=== PATIENT | female | born 1940 | race Caucasian/White ===

== ENCOUNTER 2017-05-06 07:41 | Inpatient (IN) | payer OTHER ==
[2017-05-02 16:03] LABS: BASOPHILS 0.2 %; BASOPHILS ABSOLUTE 0.02 10/3/uL (0.0-0.16); EOSINOPHILS 1.2 %; EOSINOPHILS ABSOLUTE 0.12 10/3/uL (0.0-0.53); HEMATOCRIT 43.6 % (36.0-48.0); HEMOGLOBIN 14.8 g/dL (12.0-16.0); IMMATURE GRANULOCYTES 0.3 %; IMMATURE GRANULOCYTES ABSOLUTE 0.03 10/3/uL (0.0-0.11); LYMPHOCYTES 20.7 %; LYMPHOCYTES ABSOLUTE 2.14 10/3/uL (0.67-4.30); MEAN CORPUS HGB CONC 33.9 g/dL (32.0-36.0); MEAN CORPUSCULAR HEMOGLOB 32.7 pg (26.0-34.0); MEAN CORPUSCULAR VOLUME 96.5 fL (80-100); MEAN PLATELET VOLUME 9.7 fL (9.2-13.0); MONOCYTES 5.2 %; MONOCYTES ABSOLUTE 0.54 10/3/uL (0.21-1.20); NEUTROPHILS 72.4 %; NEUTROPHILS ABSOLUTE 7.47 10/3/uL (2.02-8.40); PLATELET COUNT 285 10/3/uL (150-400); RBC DISTRIBUTION WIDTH 12.6 % (12.0-16.0); RED CELL COUNT 4.52 10/6/uL (4.0-5.6); WHITE BLOOD CELLS 10.3 10/3/uL (4.5-10.5)
[2017-05-02 16:04] LABS: MANUAL DIFF NO %
[2017-05-02 16:19] LABS: BUN (BLOOD UREA NITROGEN) 8 MG/DL (6-23); CALCIUM, SERUM 9.9 MG/DL (8.5-10.4); CHLORIDE, SERUM 101 MMOL/L (96-112); CO2 (CARBON DIOXIDE) 32 MMOL/L (24-34); GFR AFRICAN AMERICAN 104 ML/MIN (>=60); GFR NON AFRICAN AMERICAN 90 ML/MIN (>=60); GLUCOSE, SERUM 78 MG/DL (60-99); SODIUM, SERUM 136 MMOL/L (135-148)
[2017-05-02 16:20] LABS: ASCORBIC ACID (UR NOT ORDER) NEG (NEG); BILIRUBIN, URINE NEGATIVE (NEG); KETONE, URINE NEGATIVE (NEG); LEUKOCYTE ESTERASE(NOT OR NEG (NEG); WBC (NOT ORDERED) (RFLEX) 1 (0-5)
[~2017-05-06] VITALS: Ht 162.6 cm; Wt 54.4 kg
--- NOTE | ~2017-05-06 | OP ---
Record Of Operation [facility] [address] [place]. [address] NAME: LUIS LYNN : 44 STATUS : ADM IN PAT#: [id number] AGE: 76 ADM/REG DATE : 05/06/17 MR#: [id number] REPORT SERV DATE: 05/07/17 DICTATED BY: PARKER LAMBERT II DATE: 05/07/17 REPORT STATUS : Draft TRANSCRIBED BY: MODJanell DATE: 05/07/17 DATE OF PROCEDURE: 05/06/2017 CLOTHES WRINGER: Irineo. PREOPERATIVE DIAGNOSIS: Infrarenal abdominal aortic aneurysm greater than 5 cm. POSTOPERATIVE DIAGNOSIS: Infrarenal abdominal aortic aneurysm greater than 5 cm. PROCEDURES: 1. Ultrasound-guided percutaneous sheath insertion into bilateral common femoral arteries. 2. Abdominal aortogram. 3. Percutaneous endovascular repair of abdominal aortic aneurysm using a modular endograft with two docking limbs. ANESTHESIA: General. IV FLUIDS: 600. ESTIMATED BLOOD LOSS: 150. CONTRAST: 52. DETAILS OF THE PROCEDURE: The patient was taken to the operating room and placed in supine position on the table. Both groins were prepped and draped. The abdomen was prepped and draped. We then used ultrasound to identify both common femoral arteries and placed a 6- [place] sheath on each side. We then on the right side placed a ProGlide device, on the left side we placed two ProGlide devices, and then advanced an 11-[place] sheath. We placed an aortic catheter and abdominal aortogram was performed. This demonstrates a patent abdominal aorta. There was mild angulation of the aortic neck. Below this, there was a large aneurysm that extends down to the bifurcation. Both common iliacs were widely patent. Using the results from the angiogram on the marker catheter and the size of the iliacs, we chose a [employer] device main body with two docking limbs. We passed the main body of the device coming from the left side and we deployed this just below the left renal artery. We then cannulated the contralateral gate coming from the right side and we measured the distance to the internal iliac, and then brought the contralateral limb into the field and deployed this in the gate of the graft down into the right common iliac. We then measured for length on the left side and then brought the ipsilateral limb up the two docking system into the field, and we deployed this in the ipsilateral gate down into the left common iliac. We then ballooned all the attachment sites with a Reliant balloon. Completion aortogram demonstrates a proximal type 1 endoleak. The remaining portion of the graft is intact with no further endoleak seen and good flow through both limbs of the graft. We then re-ballooned the proximal attachment site with a Reliant balloon. Completion angiogram at this point demonstrates no significant endoleak. The previous type 1 endoleak is not clearly seen. There was no direct flow into the residual aneurysm. Good flow was demonstrated into the graft. We then removed all the wires and catheters, and we closed Record Of Operation [facility] [id number] [facility] [place]. [address] NAME: LUIS LYNN : 44 STATUS : [facility]M [facility]#: [id number] AGE: 76 ADM/REG DATE : 05/06/17 MR#: [id number] REPORT SERV DATE: 05/07/17 DICTATED BY: PARKER LAMBERT II DATE: 05/07/17 REPORT STATUS : Draft TRANSCRIBED BY: JULIANO DATE: 05/07/17 percutaneously. At the end of the procedure, the patient was stable. She tolerated it well. She was transported to the recovery room in good condition. MOR/JULIANO Parker Lambert II, M.D. / [id number] CC: Guillermo Bradshaw II, ALMA S
[~2017-05-06 07:41] MED LIST: ASAB PO; CRESTOR20 MG PO
[2017-05-07 05:25] LABS: HEMATOCRIT 38.7 % (36.0-48.0); HEMOGLOBIN 13.5 g/dL (12.0-16.0)
[2017-05-07 05:34] LABS: BUN (BLOOD UREA NITROGEN) 10 MG/DL (6-23); CHLORIDE, SERUM 99 MMOL/L (96-112); CREATININE 0.56 MG/DL (0.55-1.02); GFR AFRICAN AMERICAN 106 ML/MIN (>=60); GFR NON AFRICAN AMERICAN 92 ML/MIN (>=60); POTASSIUM, SERUM 3.7 MMOL/L (3.5-5.3); SODIUM, SERUM 132 MMOL/L (135-148)
[2017-05-07 05:35] LABS: CALCIUM, SERUM 8.6 MG/DL (8.5-10.4); CO2 (CARBON DIOXIDE) 24 MMOL/L (24-34); GLUCOSE, SERUM 103 MG/DL (60-99)
== END 2017-05-07 17:53 | disposition home or self-care (01) | DRG 269 ==
LOC: ENRESERV → ENRESERVDT → ENRESERVTM → SDC/OF 07:41 → 2SO 07:41
PROVIDERS: Surgery
PROC: 04V03E6 (ICD-10-PCS; principal; 2017-05-07)
DX: I71.4 Abdominal aortic aneurysm, without rupture (principal); J44.9 Chronic obstructive pulmonary disease, unspecified; F17.210 Nicotine dependence, cigarettes, uncomplicated; E78.5 Hyperlipidemia, unspecified; Z82.49 Family history of ischemic heart disease and other diseases of the circulatory system; Z80.1 Family history of malignant neoplasm of trachea, bronchus and lung
CPT/HCPCS: 34803; 36200; 71020; 75952; 80048; 81001; 85014; 85018; 85025; 87641; 93005; A9270-GY; C1725; C1760; C1769; C1874; C1876; C1894; J0690; J2250; J2370; J2405; J2710; J2720; J3010; P9045; Q9967